=== PATIENT | female | born 1945 | race African-American/Black ===

== ENCOUNTER 2019-10-22 10:51 | Day surgery (SDC) | payer OTHER ==
[2019-10-21 10:26] VITALS: BMI 31.6
[2019-10-22] MEDS ORDERED: LIDOCAINE HCL/PF 2% SDV 5ML VIAL ONE (11:30)
[2019-10-22] MEDS ORDERED: PROPOFOL 20 ML ONE ×2 (11:30)
[2019-10-22 13:07] VITALS: TEMP 97.8
[2019-10-22 13:58] VITALS: BP 120/74; PULSE 56
== END 2019-10-22 13:59 | disposition home or self-care (01) ==
LOC: FASU-ENDO 10:51
PROVIDERS: ATTEND Internal Medicine Gastroenterology
PROC: 0DJD8ZZ Inspection of Lower Intestinal Tract, Via Natural or Artificial Opening Endoscopic (ICD-10-PCS; principal; 2019-10-22 12:34)
DX: Z12.11 Encounter for screening for malignant neoplasm of colon (principal); K64.1 Second degree hemorrhoids; K57.30 Diverticulosis of large intestine without perforation or abscess without bleeding
CPT/HCPCS: 82962